=== PATIENT | male | born 1965 | race African-American/Black ===

== ENCOUNTER 2016-08-01 11:31 | Emergency (ER) | payer MEDICAID ==
[~2016-08-01] VITALS: Ht 195.6 cm; Wt 172.4 kg
[~2016-08-01 11:31] MED LIST: FAMO40TA49 OR; HYDR12.56 PO; INSLANTI SC; LISI-646 PO; VENTOLIN NEB INH
[2016-08-01 11:41] VITALS: BP 140/82
== END 2016-08-01 12:58 | disposition home or self-care (01) ==
LOC: ER 11:31
DX: S83.8X1A Sprain of other specified parts of right knee, initial encounter (principal); M17.11 Unilateral primary osteoarthritis, right knee; J45.909 Unspecified asthma, uncomplicated; E11.9 Type 2 diabetes mellitus without complications; E78.5 Hyperlipidemia, unspecified; I10 Essential (primary) hypertension; Z88.8 Allergy status to other drugs, medicaments and biological substances; W01.0XXA Fall on same level from slipping, tripping and stumbling without subsequent striking against object, initial encounter; Y93.89 Activity, other specified; Y99.8 Other external cause status; Y92.89 Other specified places as the place of occurrence of the external cause
CPT/HCPCS: 73562

== ENCOUNTER 2016-12-01 10:18 | Emergency (ER) | payer MEDICAID ==
[~2016-12-01] VITALS: Ht 195.6 cm; Wt 175.5 kg
[2016-12-01 10:54] VITALS: BP 161/105
== END 2016-12-01 11:24 | disposition home or self-care (01) ==
LOC: ER 10:18
DX: S63.502A Unspecified sprain of left wrist, initial encounter (principal); J45.909 Unspecified asthma, uncomplicated; E11.9 Type 2 diabetes mellitus without complications; E78.5 Hyperlipidemia, unspecified; I10 Essential (primary) hypertension; Z88.8 Allergy status to other drugs, medicaments and biological substances; Z79.4 Long term (current) use of insulin; X58.XXXA Exposure to other specified factors, initial encounter; Y93.89 Activity, other specified; Y99.8 Other external cause status; Y92.89 Other specified places as the place of occurrence of the external cause
CPT/HCPCS: 73110

== ENCOUNTER 2018-04-24 11:36 | Emergency (ER) | payer MEDICAID ==
[~2018-04-24] VITALS: Ht 195.6 cm; Wt 176.9 kg
[2018-04-24 11:48] VITALS: BP 165/97
== END 2018-04-24 13:17 | disposition home or self-care (01) ==
LOC: EDBD 11:36 → ER 11:42
DX: S63.92XA Sprain of unspecified part of left wrist and hand, initial encounter (principal); S80.02XA Contusion of left knee, initial encounter; J45.909 Unspecified asthma, uncomplicated; I10 Essential (primary) hypertension; E78.5 Hyperlipidemia, unspecified; E11.9 Type 2 diabetes mellitus without complications; W01.0XXA Fall on same level from slipping, tripping and stumbling without subsequent striking against object, initial encounter; Y93.01 Activity, walking, marching and hiking; Y92.59 Other trade areas as the place of occurrence of the external cause; Y99.8 Other external cause status
CPT/HCPCS: 29125; 73130; 73562

== ENCOUNTER 2019-02-08 10:09 | Emergency (ER) | payer MEDICAID ==
[~2019-02-08] VITALS: Ht 195.6 cm; Wt 167.8 kg
[2019-02-08 12:07] LABS: Urine Bacteria NONE SEEN /hpf (None Seen); Urine Blood 3+ /uL (Negative); Urine Budding Yeast FEW /hpf (None Seen); Urine Mucus FEW (None Seen); Urine Specific Gravity 1.022 (1.001-1.035); Urine WBC 212 /hpf (0 - 3); Urine WBC Clumps PRESENT /hpf (None Seen)
[2019-02-08] MEDS ORDERED: cefTRIAXone SOD 1,000 MG VL IM ONE (12:45)
[2019-02-08 13:25] VITALS: BP 138/82
== END 2019-02-08 13:26 | disposition home or self-care (01) ==
LOC: ER 10:09
DX: N39.0 Urinary tract infection, site not specified (principal); J45.909 Unspecified asthma, uncomplicated; E11.9 Type 2 diabetes mellitus without complications; E78.5 Hyperlipidemia, unspecified; I10 Essential (primary) hypertension; Z88.6 Allergy status to analgesic agent
CPT/HCPCS: 81001; 82962; 96372; 99283; J0696

== ENCOUNTER 2023-05-01 15:03 | Emergency (ER) | payer MEDICAID ==
[~2023-05-01] VITALS: Ht 195.6 cm; Wt 153.7 kg
[~2023-05-01 15:03] MED LIST changes: -FAMO40TA49 OR; +FAMO40TA7 OR; -HYDR12.56 PO; +HYDR12.59 PO; -LISI-646 PO; +LISI20TA56 PO
[2023-05-01 16:26] VITALS: BP 122/68; PULSE 107; RESP 20; TEMP 97.9; O2SAT 96
[2023-05-01] MEDS ORDERED: AUG875T PO (16:28)
[2023-05-01] MEDS: TETANUS-DIPTH-ACEL PERTUSSIS 0.5ML SYR Tdap IM ONE (16:36)
== END 2023-05-01 16:53 | disposition home or self-care (01) ==
LOC: ER 15:03
DX: S91.031A Puncture wound without foreign body, right ankle, initial encounter (principal); W54.0XXA Bitten by dog, initial encounter; Y93.89 Activity, other specified; Y92.89 Other specified places as the place of occurrence of the external cause; Y99.8 Other external cause status
CPT/HCPCS: 90471; 90715

== ENCOUNTER 2023-10-16 04:56 | Emergency (ER) | payer MEDICAID ==
[~2023-10-16] VITALS: Ht 195.6 cm; Wt 153.1 kg
[~2023-10-16 04:56] MED LIST changes: +AUG875T PO
[2023-10-16 06:50] VITALS: BP 136/70; PULSE 105; RESP 16; TEMP 98.1; O2SAT 96
[2023-10-16] MEDS ORDERED: IBUP-1456 PO (07:23)
== END 2023-10-16 07:32 | disposition home or self-care (01) ==
LOC: ER 04:56
DX: S83.8X2A Sprain of other specified parts of left knee, initial encounter (principal); I10 Essential (primary) hypertension; E11.9 Type 2 diabetes mellitus without complications; E78.5 Hyperlipidemia, unspecified; J45.909 Unspecified asthma, uncomplicated; Z88.8 Allergy status to other drugs, medicaments and biological substances; Z79.899 Other long term (current) drug therapy; W18.09XA Striking against other object with subsequent fall, initial encounter; Y93.89 Activity, other specified; Y92.524 Gas station as the place of occurrence of the external cause; Y99.8 Other external cause status
CPT/HCPCS: 73562